=== PATIENT | female | born 1970 | race Caucasian/White ===

== ENCOUNTER → 2020-11-21 14:07 | Outpatient (BNVA) | payer BC, SELFPAY | PROVIDERS: PCP Internal Medicine; Visit Provider Internal Medicine Cardiovascular Disease | DX: E78.5 Hyperlipidemia, unspecified (principal); I10 Essential (primary) hypertension | CPT/HCPCS: 93005 ==

== ENCOUNTER → 2021-12-26 08:56 | Outpatient (BNVA) | payer BC, SELFPAY | PROVIDERS: PCP Internal Medicine; Referring Provider Internal Medicine; Visit Provider Internal Medicine Cardiovascular Disease | DX: I10 Essential (primary) hypertension (principal); E78.5 Hyperlipidemia, unspecified | CPT/HCPCS: 93005 ==

== ENCOUNTER → 2022-12-04 13:02 | Outpatient (BNVA) | payer BC, SELFPAY | PROVIDERS: PCP Internal Medicine; Referring Provider Internal Medicine; Visit Provider Internal Medicine Cardiovascular Disease | DX: I10 Essential (primary) hypertension (principal); E78.5 Hyperlipidemia, unspecified | CPT/HCPCS: 93005 ==

== ENCOUNTER 2023-03-16 22:34 | Inpatient (IN) | payer BC, SELFPAY ==
--- NOTE | ~2023-03-16 | US_ITS ---
EXAMINATION: US ABDOMEN LIMITED CLINICAL INFORMATION: Right upper quadrant pain. COMPARISON: None available. TECHNIQUE: Real-time imaging of the right upper quadrant abdominal viscera. FINDINGS: PANCREAS: The head and the body of the pancreas is homogeneous echotexture. The tail is obscured by overlying gas. LIVER: The liver is normal in size. The liver contour is normal. Parenchymal echogenicity is increased. No focal hepatic lesion. There is no intrahepatic biliary duct dilatation seen. GALLBLADDER: Gallbladder is distended with echogenic sludge and a impacted stone in the gallbladder neck. Gallbladder wall measures 0.5 cm thick. There is mild pericholecystic fluid collection. COMMON BILE DUCT: Normal in caliber measuring 0.5 cm in diameter. RIGHT KIDNEY: Normal. No hydronephrosis. No renal calculi or focal parenchymal lesions. The kidney measures 10.6 cm in maximum dimension. FREE FLUID: None. US/US abdomen limited IMPRESSION: 1. Distended gallbladder with echogenic sludge and impacted stone in the gallbladder neck. Mild wall thickening and pericholecystic fluid collection. Findings are suggestive of acute cholecystitis. 2. Rest of the limited right upper quadrant ultrasound is unremarkable.
[2023-03-16 23:24] VITALS: BP 143/77; PULSE 85; RESP 18; TEMP 36.6; O2SAT 98; BMI 44.8
[2023-03-16 23:44] LABS: Hematocrit 41.8 % (37.0-47.0); Hemoglobin 14.5 g/dl (12.0-16.0); Mean Corpuscular HGB Conc 34.7 g/dl (31.0-35.0); Mean Corpuscular Hemoglobin 30.1 pg (27.0-33.0); Mean Corpuscular Volume 86.9 fL (80.0-98.0); Mean Platelet Volume 10.1 fL (9.4-12.3); Platelet Count 234 X10*3/uL (160-400); Red Blood Count 4.81 X10*6/uL (4.20-5.50); Red Cell Distribution Width 12.4 % (11.0-16.0); White Blood Count 11.9 X10*3/uL (4.8-10.8)
[2023-03-17] VITALS (11 sets, daily range): BP systolic 122–159; BP diastolic 62–80; PULSE 77–106; RESP 16–23; TEMP 36.1–36.9; O2SAT 93–98
[2023-03-17 00:01] LABS: Alanine Aminotransferase 15 U/L (0-31); Albumin Level 4.1 g/dL (3.5-5.0); Alkaline Phosphatase 97 U/L (39-117); Anion Gap 15 (12-20); Aspartate Amino Transferase 16 U/L (5-31); Bilirubin Total 1.2 mg/dL (0.0-1.0); Blood Urea Nitrogen 10 mg/dL (9-16); Calcium 10.2 mg/dL (8.4-10.2); Carbon Dioxide 28 mmol/L (22-29); Chloride 98 mmol/L (96-108); Creatinine Clr Calc Pharmacy 77.1; Estimated Glomerular Filt Rate 56; Glucose Random 120 mg/dL (60-115); Lipase 20 U/L (8-78); Sodium 138 mmol/L (135-145); Total Protein 8.4 g/dL (6.5-8.0)
--- NOTE | 2023-03-17 01:00 | PC.NURSE ---
Patient to ED for c/o abdominal pain in the right upper abdomen radiating to the right back for last 2-3 days. Pt states she is also nauseated and bloated for the last 2-3 days as well. Pt states she has never had similar pain in the past. Pt denies any urinary complaints no fever or chills patient did not eat much for last 24 hours because of pain. Pts history includes a prior hysterectomy but otherwise no other abdominal surgeries.
--- NOTE | 2023-03-17 02:03 | ED_ITS ---
HPI - Abdominal Pain General Chief Complaint: Abdominal Pain Stated Complaint: Rightside back/side pain Time Seen by Provider: 03/17/23 02:02 Source: patient Mode of arrival: ambulatory Limitations: no limitations History of Present Illness HPI narrative: Patient no significant past abdominal complaints noticed pain in the right upper abdomen radiating to the right back for last 2-3 days does not feel hungry feel nauseated and bloated never had similar pain in the past no urinary complaints no fever or chills patient did not eat much for last 24 hours because of pain. She had prior hysterectomy moving her bowels , has severe nausea no vomiting Related Data Home Medications Medication Instructions Recorded Confirmed amlodipine 5 mg tablet 5 mg PO DAILY 11/21/20 12/04/22 atorvastatin 20 mg tablet 20 mg PO DAILY 11/21/20 12/04/22 cholecalciferol (vitamin D3) 25 25 mcg PO DAILY 11/21/20 12/04/22 mcg (1,000 unit) capsule hydrochlorothiazide 12.5 mg capsule 12.5 mg PO DAILY 11/21/20 12/04/22 metoprolol succinate 100 mg 100 mg PO DAILY 11/21/20 12/04/22 tablet,extended release 24 hr valsartan 160 mg tablet 160 mg PO DAILY 11/21/20 12/04/22 levothyroxine 125 mcg capsule 125 mcg PO DAILY 12/26/21 12/04/22 Allergies Allergy/AdvReac Type Severity Reaction Status Date / Time lisinopril Allergy Unknown cough Verified 12/04/22 13:09 Review of Systems Review of Systems Yes all other systems are reviewed and are negative [facility] Past Medical History Surgical History History of adenoidectomy History of eye surgery History of hysterectomy Family History Family History Father Hypertension Hyperlipidemia Carotid disease, bilateral Mother Hypertension Thyroid disease History of heart attack Social History Social History Alcohol intake: never Patient Tobacco Use Status: Never used Tobacco Smoked in Last 30 Days: No Use of substances other than those prescribed or required for medical reasons: No Any prior treatment program specific to substance use: No Advance Directives: No Advance Directives Information Provided: Yes Patient : No Physical Exam ED Vital Signs: Vital Signs - 24 hr 03/16/23 23:24 03/17/23 02:23 Temperature 98 F Pulse Rate 85 78 Respiratory Rate 18 18 Blood Pressure 143/77 H 147/77 H Pulse Oximetry 98 98 Oxygen Delivery Method Room Air BMI result Body Mass Index 44.8 Appearance: Alert. Oriented X3. No acute distress. Eyes: No pallor or icterus ENT: Pharynx normal. Oral Mucosa moist Neck: Normal inspection. Neck supple. CVS: Normal heart rate and rhythm. Pulses normal. Respiratory: No respiratory distress. Equal air entry bilateral, no wheezing/rales/rhonchi Abdomen: Soft , tender right upper quadrant Diaz sign positive Bowel sounds are present, no mass palpable, no CVA tenderness Skin: Skin warm and dry. Normal skin color. Normal skin turgor. Extremities: No lower extremity edema. Neuro: Oriented X 3. No motor deficit. Medical Decision Making Medical Decision Making [facility] Narrative: Patient impacted gallstone in the gallbladder neck with wall thickening and slight fluid collection around the gallbladder suggestive of cholecystitis patient is still very uncomfortable has tenderness in right upper quadrant Diaz sign positive case discussed with Dr. Mcginnis surgeon will admit patient for possible surgery, patient urine showed wbc's with large amount of leuko Estrace nitrite negative bacteria 1+ patient denied any urinary symptoms Consult Healthcare Provider Management of the patient was discussed with: Generator Assembler surgeon Lab Data [facility] Lab Attestation statement: I reviewed the patient's lab results. 03/16/23 23:39 03/16/23 23:39 Labs: Lab Results 03/16/23 03/16/23 03/17/23 Range/Units 23:39 23:39 05:01 WBC 11.9 H (4.8-10.8) X10*3/uL RBC 4.81 (4.20-5.50) X10*6/uL Hgb 14.5 (12.0-16.0) g/dl Hct 41.8 (37.0-47.0) % MCV 86.9 (80.0-98.0) fL MCH 30.1 (27.0-33.0) pg MCHC 34.7 (31.0-35.0) g/dl RDW 12.4 (11.0-16.0) % Plt Count 234 (160-400) X10*3/uL MPV 10.1 (9.4-12.3) fL Absolute Nucleated RBC 0.000 (0.0-0.012) X10*3/uL Nucleated RBC % (auto) 0.0 (0.0-0.2) /100WBC Sodium 138 (135-145) mmol/L Potassium 3.0 L (3.3-5.1) mmol/L Chloride 98 (96-108) mmol/L Carbon Dioxide 28 (22-29) mmol/L Anion Gap 15 (12-20) BUN 10 (9-16) mg/dL Creatinine 1.03 (0.5-1.4) mg/dL Estim Creat Clear Calc 77.1 Estimated GFR 56 Random Glucose 120 H (60-115) mg/dL Lactic Acid 1.0 (0.5-2.0) mmol/L Calcium 10.2 (8.4-10.2) mg/dL Total Bilirubin 1.2 H (0.0-1.0) mg/dL AST 16 (5-31) U/L ALT 15 (0-31) U/L Alkaline Phosphatase 97 (39-117) U/L Total Protein 8.4 H (6.5-8.0) g/dL Albumin 4.1 (3.5-5.0) g/dL Lipase 20 (8-78) U/L Radiology Impression Discussion of test interpretation with radiology: I have reviewed the radiologist's reading. Radiologist Impression: US/US abdomen limited IMPRESSION: 1.? Distended gallbladder with echogenic sludge and? impacted stone in the gallbladder neck. Mild wall thickening and pericholecystic fluid collection. Findings are suggestive of acute cholecystitis. 2.? Rest of the limited right upper quadrant ultrasound is unremarkable. ? Medications Administered Generic Name Dose Route Start Last Admin Trade Name Freq PRN Reason Stop Dose Admin Sodium Chloride 1,000 mls @ 100 mls/hr 03/17/23 05:15 03/17/23 05:52 Ns IVCONT 100 mls/hr .Q10H SHABANA Administration Discontinued Medications Generic Name Dose Route Start Last Admin Trade Name Freq PRN Reason Stop Dose Admin Sodium Chloride 1,000 mls @ 999 mls/hr 03/17/23 02:53 03/17/23 04:44 Ns IV 03/17/23 03:53 Infused .Q1H1M ONE Infusion Potassium Chloride 10 meq in 100 mls @ 100 mls/hr 03/17/23 02:53 03/17/23 04:42 Potassium Chloride/H20 IV 03/17/23 03:52 Infused ONCE ONE Infusion Piperacillin Sod/Tazobactam 50 mls @ 100 mls/hr 03/17/23 04:46 03/17/23 05:07 Sod 3.375 gm/ Sodium Chloride IV 03/17/23 05:15 100 mls/hr ONCE ONE Administration Morphine Sulfate 4 mg 03/17/23 02:53 03/17/23 03:42 Morphine Sulfate 4 Mg/Ml Cartridge IVPUSH 03/17/23 02:54 4 mg ONCE ONE Administration Protocol Morphine Sulfate 4 mg 03/17/23 04:48 03/17/23 05:08 Morphine Sulfate 4 Mg/Ml Cartridge IVPUSH 03/17/23 04:49 4 mg ONCE ONE Administration Protocol Ondansetron HCl 4 mg 03/17/23 02:53 03/17/23 03:42 Ondansetron Hcl 4 Mg/2 Ml Vial IVPUSH 03/17/23 02:54 4 mg ONCE ONE Administration Discharge Plan Discharge Clinical Impression: Acute cholecystitis, Acute hypokalemia Patient Disposition: Admitted As Inpatient
[2023-03-17] MEDS: ondansetron HCL 4 MG/2 ML VIAL IVPUSH (03:42)
[2023-03-17] MEDS: Morphine Sulfate 4 MG/ML CARTRIDGE IVPUSH ×2 (03:42→05:08)
[2023-03-17] MEDS: Potassium Chloride/H20 10 MEQ/100 ML PIGGYBACK 100 MEQ IV (03:42)
[2023-03-17] MEDS: 0.9 % Sodium Chloride 1,000 ML 999 ML IV (03:43)
[2023-03-17] MEDS: Piperacillin Sodium/Tazobactam 3.375 GM in 0.9 % Sodium Chloride 50 ML IV ×2 (05:07→13:10)
[2023-03-17 05:25] LABS: Appearance Urine Clear; Color Urine Yellow; Glucose Urine UA Negative (Negative); Leukocyte Esterase Urine Large (3+) (Negative); Nitrite Urine Negative (Negative); PH 6.5 (5.0-9.0); Specific Gravity - Urine <= 1.005 (1.005-1.025); UMIC TRIGGER UACC YES; Urine Blood Negative (Negative); Urine Ketones Negative (Negative); Urine Protein Negative (Neg-Trace)
[2023-03-17 05:30] LABS: Bacteria Urine 1+ (None Seen); Hyaline Casts Urine 0-2 /LPF (0-2); UACC Culture Trigger YES; WBC Urine >50 /HPF (0-5)
[2023-03-17] MEDS: 0.9 % Sodium Chloride 1,000 ML 100 ML IVCONT (05:52)
--- NOTE | 2023-03-17 07:19 | PC.NURSE ---
pt is aox3 speaking in full clear sentences. aware of plan of care for surgery. states she has not eaten since 4pm yesterday but was drinking water about an hour ago. will make md aware. denied having any questions.
--- NOTE | 2023-03-17 07:52 | P.HPGS_ITS ---
History of Present Illness History of Present Illness Date of Service: 03/17/23 Chief complaint: Abdo pain Narrative: Zena Ashraf is a 52 year old female with a history of biliary colic who presents here with an exacerbation consisting of right upper quadrant pain radiating around to her back. She has had several bouts of this in the past. On this episode, because of progression of symptoms he presents to the emergency department for further evaluation. She denies any nausea or vomiting. She has regular bowel habits. She has never been jaundiced before. Patient has never had colonoscopy before. Sonographic findings consistent with acute cholecystitis. Chart was reviewed patient evaluated. Bilirubin level 1.2. White blood count 11.6 per PMFSH Family History Family History Father Hypertension Hyperlipidemia Carotid disease, bilateral Mother Hypertension Thyroid disease History of heart attack Surgical History Surgical History History of adenoidectomy History of eye surgery History of hysterectomy Social History Social History Alcohol intake: never Patient Tobacco Use Status: Never used Tobacco Smoked in Last 30 Days: No Use of substances other than those prescribed or required for medical reasons: No Any prior treatment program specific to substance use: No Advance Directives: No Advance Directives Information Provided: Yes Patient : No Meds Allergies Allergy/AdvReac Type Severity Reaction Status Date / Time lisinopril Allergy Unknown cough Verified 12/04/22 13:09 Active Medications: Current Medications Sodium Chloride (Ns) 1,000 mls @ 100 mls/hr IVCONT .Q10H [facility] Last Admin: 03/17/23 05:52 Dose: 100 mls/hr Piperacillin Sod/Tazobactam (Sod 3.375 gm/ Sodium Chloride) 50 mls @ 100 mls/hr IV Q6H SHABANA Morphine Sulfate (Morphine Sulfate 4 Mg/Ml Cartridge) 4 mg IVPUSH Q4H PRN; Protocol PRN Reason: Pain, Severe (Pain Scale 7-10) Sodium Chloride (0.9 % Sodium Chloride Flush 3 Ml Syringe) 3 ml IVFLUSH QSHIFT [facility] Last Admin: 03/17/23 07:03 Dose: Not Given Home Medications Medication Instructions Recorded Confirmed Last Taken Type amlodipine 5 mg tablet 5 mg PO DAILY 11/21/20 12/04/22 Unknown History atorvastatin 20 mg tablet 20 mg PO DAILY 11/21/20 12/04/22 Unknown History cholecalciferol (vitamin D3) 25 25 mcg PO DAILY 11/21/20 12/04/22 Unknown History mcg (1,000 unit) capsule hydrochlorothiazide 12.5 mg capsule 12.5 mg PO DAILY 11/21/20 12/04/22 Unknown History metoprolol succinate 100 mg 100 mg PO DAILY 11/21/20 12/04/22 Unknown History tablet,extended release 24 hr valsartan 160 mg tablet 160 mg PO DAILY 11/21/20 12/04/22 Unknown History levothyroxine 125 mcg capsule 125 mcg PO DAILY 12/26/21 12/04/22 Unknown History semaglutide (weight loss) 0.25 0.25 mg subcut QWEEK 03/17/23 Unknown History mg/0.5 mL subcutaneous pen injector (Alise) Physical Exam Vital Signs: Vital Signs: Last Vital Signs Temp 97.3 F 03/17/23 06:29 Pulse 80 03/17/23 06:29 Resp 18 03/17/23 06:29 BP 122/67 03/17/23 06:29 Pulse Ox 94 03/17/23 06:29 O2 Del Method Room Air 03/17/23 06:29 BMI result Body Mass Index 44.8 Eyes: Other: anicteric Chest: Other: chest sounds bilaterally, HS 1 in 2 GI: Other: very corpulent abdomen. Moderate right upper quadrant tenderness. No evidence of any guarding , rebound or rigidity. Results Results Labs: Short CBC 03/16/23 Range/Units 23:39 WBC 11.9 H (4.8-10.8) X10*3/uL Hgb 14.5 (12.0-16.0) g/dl Hct 41.8 (37.0-47.0) % Plt Count 234 (160-400) X10*3/uL BMP 03/16/23 23:39 Sodium 138 Potassium 3.0 L Chloride 98 Carbon Dioxide 28 BUN 10 Creatinine 1.03 Calcium 10.2 Liver Function 03/16/23 Range/Units 23:39 Total Bilirubin 1.2 H (0.0-1.0) mg/dL AST 16 (5-31) U/L ALT 15 (0-31) U/L Alkaline Phosphatase 97 (39-117) U/L Albumin 4.1 (3.5-5.0) g/dL Urine 03/17/23 Range/Units 05:19 Urine Color Yellow Urine Appearance Clear Urine pH 6.5 (5.0-9.0) Ur Specific [place] <= 1.005 (1.005-1.025) Urine Protein Negative (Neg-Trace) mg/dL Urine Glucose (UA) Negative (Negative) mg/dL Assessment and Plan (1) Acute cholecystitis: Status: Acute Plan risks, benefits, alternatives of laparoscopic possible open cholecystectomy reviewed with the patient and included but not limited to bleeding, infection, recurrence of symptoms, numbness, pain, scarring, bile duct injury or leak and the patient wishes to proceed. All questions were answered. Patient will be placed on the add on schedule for today. Time Spent With Patient Time: Total time managing care of this patient today ____ minutes. Quality Stroke Does the patient have a stroke diagnosis?: No VTE Prior VTE?: No VTE Risk Level:: Surgical - low VTE Device Contraindication: N/A - Device Ordered VTE Drug Contraindication: Treatment Not Indicated Procedures Date of Service Date of Service: 03/17/23
--- NOTE | 2023-03-17 08:52 | PC.NURSE ---
report given to [facility] plan for apple picking supervisor around 12noon
--- NOTE | 2023-03-17 09:20 | MHC.CM.PN ---
Met with patient and Yinka in regards to discharge planning. Patient lives with her , ambulates independently and had no services prior to coming to the hospital. 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 No services anticipated to be needed because patient is not homebound. PCP verified as Dr Mercado. Patient denies having a HCP. Information provided. Patient not interested in completing one at this time. Patient received 5 Covid vaccines. Yinka will transport patient home when medically stable. Continue to monitor for d/c needs.
--- NOTE | 2023-03-17 12:17 | PC.NURSE ---
pt completely changed over. awaiting SSS mixing picker tender.
--- NOTE | 2023-03-17 12:37 | PC.NURSE ---
SSS here to bring pt to OR
--- NOTE | 2023-03-17 12:41 | HO.ANESPROP2 ---
HPI - Anesthesia Eval Consult details Narrative: for lap cholecystectomy PMFSH Active Problems Active Problems: All Active Problems (Updated 03/17/23 @ 06:07 by Amrit Pineda MD) Acute cholecystitis (Acute) Acute hypokalemia (Acute) UTI (urinary tract infection) (Acute) Hyperlipidemia (Acute) Hypertension (Acute) Family History Family History Father Hypertension Hyperlipidemia Carotid disease, bilateral Mother Hypertension Thyroid disease History of heart attack Family history of problems with anesthesia: No Surgical History Surgical History History of adenoidectomy History of eye surgery History of hysterectomy History of Problems with Anesthesia: No Social History Social History Alcohol intake: never Patient Tobacco Use Status: Never used Tobacco Smoked in Last 30 Days: No Use of substances other than those prescribed or required for medical reasons: No Any prior treatment program specific to substance use: No Advance Directives: No Advance Directives Information Provided: Yes Patient : No service: No Meds Allergies Allergy/AdvReac Type Severity Reaction Status Date / Time lisinopril Allergy Unknown cough Verified 12/04/22 13:09 Active Medications: Current Medications Sodium Chloride (Ns) 1,000 mls @ 100 mls/hr IVCONT .Q10H [facility] Last Admin: 03/17/23 05:52 Dose: 100 mls/hr Piperacillin Sod/Tazobactam (Sod 3.375 gm/ Sodium Chloride) 50 mls @ 100 mls/hr IV Q6H SHABANA Morphine Sulfate (Morphine Sulfate 4 Mg/Ml Cartridge) 4 mg IVPUSH Q4H PRN; Protocol PRN Reason: Pain, Severe (Pain Scale 7-10) Sodium Chloride (0.9 % Sodium Chloride Flush 3 Ml Syringe) 3 ml IVFLUSH QSHIFT [facility] Last Admin: 03/17/23 07:03 Dose: Not Given Home Medications Medication Instructions Recorded Confirmed Last Taken Type amlodipine 5 mg tablet 5 mg PO DAILY 11/21/20 03/17/23 03/17/23 History atorvastatin 20 mg tablet 20 mg PO BEDTIME 11/21/20 03/17/23 03/17/23 History cholecalciferol (vitamin D3) 25 50 mcg PO DAILY 11/21/20 03/17/23 03/17/23 History mcg (1,000 unit) capsule hydrochlorothiazide 12.5 mg capsule 12.5 mg PO DAILY 11/21/20 03/17/23 03/17/23 History metoprolol succinate 100 mg 100 mg PO DAILY 11/21/20 03/17/23 03/17/23 History tablet,extended release 24 hr valsartan 160 mg tablet 160 mg PO DAILY 11/21/20 03/17/23 03/17/23 History levothyroxine 125 mcg capsule 125 mcg PO DAILY@0600 12/26/21 03/17/23 03/17/23 History semaglutide (weight loss) 0.25 0.25 mg subcut QWEEK 03/17/23 03/17/23 2 Weeks Ago History mg/0.5 mL subcutaneous pen ~03/03/23 injector (Alise) Exam Exam Date and Time: March 17, 2023 1241 Height,Weight and Vital Signs: Height 5 ft 3 in Weight 114.759 kg Last Vital Signs Temp 97.3 F 03/17/23 06:29 Pulse 77 03/17/23 08:21 Resp 19 03/17/23 08:21 BP 140/66 H 03/17/23 08:21 Pulse Ox 93 03/17/23 08:21 O2 Del Method Room Air 03/17/23 08:21 Pertinent Lab Results Pertinent Lab Results: Laboratory Tests 03/16/23 03/16/23 03/17/23 23:39 23:39 05:01 WBC 11.9 H RBC 4.81 Hgb 14.5 Hct 41.8 MCV 86.9 MCH 30.1 MCHC 34.7 RDW 12.4 Plt Count 234 MPV 10.1 Absolute Nucleated RBC 0.000 Nucleated RBC % (auto) 0.0 Sodium 138 Potassium 3.0 L Chloride 98 Carbon Dioxide 28 Anion Gap 15 BUN 10 Creatinine 1.03 Estim Creat Clear Calc 77.1 Estimated GFR 56 Random Glucose 120 H Lactic Acid 1.0 Calcium 10.2 Total Bilirubin 1.2 H AST 16 ALT 15 Alkaline Phosphatase 97 Total Protein 8.4 H Albumin 4.1 Lipase 20 Urine Color Urine Appearance Urine pH Ur Specific [place] Urine Protein Urine Glucose (UA) Urine Ketones Urine Blood Urine Nitrite Ur Leukocyte Esterase Urine RBC Urine WBC Ur Squamous Epith Cells Urine Bacteria Hyaline Casts 03/17/23 05:19 WBC RBC Hgb Hct MCV MCH MCHC RDW Plt Count MPV Absolute Nucleated RBC Nucleated RBC % (auto) Sodium Potassium Chloride Carbon Dioxide Anion Gap BUN Creatinine Estim Creat Clear Calc Estimated GFR Random Glucose Lactic Acid Calcium Total Bilirubin AST ALT Alkaline Phosphatase Total Protein Albumin Lipase Urine Color Yellow Urine Appearance Clear Urine pH 6.5 Ur Specific [place] <= 1.005 Urine Protein Negative Urine Glucose (UA) Negative Urine Ketones Negative Urine Blood Negative Urine Nitrite Negative Ur Leukocyte Esterase Large (3+) H Urine RBC 3-5 H Urine WBC >50 H Ur Squamous Epith Cells 6-10 Urine Bacteria 1+ Hyaline Casts 0-2 Airway Mallampati Class: II TM Dist: <=3cm Neck ROM: Full Partial: Lower Heart: ok Lungs: ok Other: potassium 3.0. Had 10 mEq in ED. Needs another 30 mEq. Assessment and Plan Assessment Anesthesia Assessment: Anesthesia Plan Discussed and Chart Reviewed Final Anesthetic Review Family History of Problems with Anesthesia: No History of Problems with Anesthesia: No NPO: Yes ASA Class: III Final Preanesthetic Review: No Changes in Pt Med Stat, Meds/Allgs Chart Reviewed, Consent Obtained/Reviewed and Anes Risks/Benef Reviewed Patient Risk: Intermediate Procedure Risk: Intermediate Anesthetic Plan Anesthetic Plan: GA and Agree w/ Assess. and Plan Disposition: Standard PACU
--- NOTE | 2023-03-17 14:26 | P.OP_ITS ---
Operative Note Operative Note Date of Service: 03/17/23 Narrative: Preoperative diagnosis: [] Acute cholecystitis, incarcerated umbilical hernia Postop diagnosis: [] Acute phlegmonous cholecystitis, incarcerated umbilical hernia Procedure [] laparoscopic cholecystectomy, primary closure umbilical hernia Surgeon: [] [employer] Plant Technical Specialist: [] josé Brown Type of Anesthesia: [] General Indication for surgery: [] Edematous, inflamed, phlegmonous intrahepatic gallbladder. Large gallstone impacted in the cystic duct/Sharif's pouch junction. Very corpulent abdomen. Incidental finding of an incarcerated umbilical hernia with omental contents ; defect measuring approximately 1 cm. Findings: [] Patient brought to operating room, placed on the operative table in supine position, and after adequate level of general anesthesia was induced, the patient's abdomen was prepped and draped in usual sterile fashion. Using a supraumbilical curvilinear incision, this carried down through skin , subcutaneous tissue, where hernia sac was identified and dissected off the posterior aspect of the umbilicus and traced down to the fascia. Sac was opened, where incarcerated omental contents and sac were amputated using Bovie. [place] technique was then used to in insufflate the abdominal cavity to 15 mm of CO2. Upper midline and right subcostal ports were placed under direct laparoscopic view, the patient placed in reverse Trendelenburg position, and tilted to the left. Findings were as noted above. A large phlegmonous turgid gallbladder had to be decompressed with an aspirating device so it could be grasped by laparoscopic graspers. Gallbladder had omental and gastric adhesions to it, which were swept off and the gallbladder was retracted superiorly and laterally. Edematous phlegmonous hilum was approached with the cystic duct and cystic artery were each identified, circumferentially dissected out, traced directly into the gallbladder and critical view obtained. Each was clipped proximally x2, distally x1, then transected. Gallbladder ,which was intrahe patic was cauterized from the gallbladder fossa using Bovie. Specimen was placed in an Endo-Catch bag, and retrieved through the umbilical port. Abdominal cavity was very copiously irrigated, and secured hemostasis. All ports were removed under direct laparoscopic view. Wounds were closed in the following manner; umbilical wound which was the site of the umbilical hernia was closed primarily using interrupted 0 Vicryl sutures. Skin wounds were closed using subcuticular 4-0 Vicryl sutures followed by Steri-Strips and sterile dressings. Wounds were infiltrated 0.5% Marcaine at completion. Sponge, needle, and instrument counts were reported to be correct. Patient tolerated the procedure well and emerged anesthesia stable condition. EBL minimal
--- NOTE | 2023-03-18 09:32 | P.DS_ITS ---
DS: Providers Provider Date of Service: 03/17/23 Date of admission: 03/17/23 05:03 Date of discharge: 03/17/23 Primary care physician: Roc Mercado MD Attending physician on admission: Umm Mcginnis Attending physician on discharge: Lawson Anders DS: Diagnosis Discharge Diagnosis (1) Acute cholecystitis: Status: Acute DS: Summary Hospital Course Hospital Course: HPI AT ADMISSION: Zena Ashraf is a 52 year old female with a history of biliary colic, morbid obesity who presents here with an exacerbation consisting of right upper quadrant pain radiating around to her back. She has had several bouts of this in the past. On this episode, because of progression of symptoms he presents to the emergency department for further evaluation. She denies any nausea or vomiting. She has regular bowel habits. She has never been jaundiced before. Patient has never had colonoscopy before. Sonographic findings consistent with acute cholecystitis. Chart was reviewed patient evaluated. Bi lirubin level 1.2. White blood count 11.6. HOSPITAL COURSE: The patient was admitted to the surgical service for further treatment of the acute cholecystitis. It was recommended to proceed with with laparoscopic cholecystectomy, possible open. She agreed and was added onto the OR schedule for the day. She was kept NPO, on IVF and IV zosyn. She was hypokalemic on admission labs and this was supplemented preoperatively. On 03/17/23, a laparoscopic cholecystectomy was performed by Dr. Anders without complication. She tolerated the procedure well. She felt well in PACU and was tolerating solid diet with good pain control. Her abdomen was benign. She felt ready for discharge. She was discharged to home on 03/17/23 in stable condition. She is to follow up in the office in 1 week. She did have a UTI on urinalysis and was discharged on 5 day course of Macrobid. Status at Discharge Functional status at discharge: independent ambulation Overall status at discharge: patient is progressing back to baseline Time Spent with Patient Time attestation: Total time managing care of this patient today ____ minutes. Discharge coordination time: Less than 30 minutes Quality: Safe Use of Opioids Does Pt have an Active Cancer Diagnosis on the Problem List?: No Quality: Stroke Does the patient have a stroke diagnosis?: No Physical Exam Vital Signs: Vital Signs: Last Vital Signs Temp 97.1 F 03/17/23 15:38 Pulse 81 03/17/23 15:38 Resp 19 03/17/23 15:38 BP 126/66 03/17/23 15:38 Pulse Ox 93 03/17/23 15:38 O2 Del Method Room Air 03/17/23 15:38 O2 Flow Rate 2 03/17/23 15:08 BMI result Body Mass Index 44.8 Const: General: comfortable, no acute distress and alert Orientation/consciousness: patient oriented x3 Resp: Effort & Inspection: normal respiratory effort GI: Inspection: No distended and Yes incision (dressings clean, intact) Palpation (GI): Soft to palpation, Tenderness to palpation present (GI) (incisional), no guarding and not rigid Skin: General skin exam: no rashes or lesions noted Neuro: General: patient oriented x3 and moves all extremities DS: Data Data Completed and Pending Pending studies at discharge: Pending at discharge 03/17/23 14:23 Surgical [PTH] Routine Labs on day of discharge: Preliminary micro results at discharge 03/17/23 05:02 Blood Culture - Preliminary Blood - Venous No growth after 24 hours. 03/17/23 05:02 Blood Culture - Preliminary Blood - Venous No growth after 24 hours. Discharge Plan Discharge Anticipated Discharge Date/Time: 03/18/23 08:24 Patient Disposition: Home, Self-Care Discharge Diagnosis: acute cholecystitis Referrals: Lawson Anders MD [Physician] - 1 Week Physician,Unknown J [Physician] - 1 Week Discharge Medications: New oxycodone-acetaminophen [Percocet] 5-325 mg tablet 1 tab PO Q4H PRN (Reason: pain (scale score 7-10)) Qty: 20 0RF Rx Instructions: Partial Fill upon patient request. nitrofurantoin monohyd/m-cryst [Macrobid] 100 mg capsule 100 mg PO BID Qty: 10 0RF Rx Instructions: must administer with a meal/food Continued Wegovy 0.25 mg/0.5 mL pen injector 0.25 mg subcut QWEEK hydrochlorothiazide 12.5 mg capsule 12.5 mg PO DAILY valsartan 160 mg tablet 160 mg PO DAILY amlodipine 5 mg tablet 5 mg PO DAILY metoprolol succinate 100 mg tablet extended release 24 hr 100 mg PO DAILY atorvastatin 20 mg tablet 20 mg PO BEDTIME cholecalciferol (vitamin D3) 25 mcg (1,000 unit) capsule 50 mcg PO DAILY levothyroxine 125 mcg capsule 125 mcg PO DAILY@0600 Discharge Orders: Discharge Order (Routine); Ordered 03/17/23 Ordered By: Lawson Anders Diet: Low fat, low cholesterol Activity on Discharge: No heavy lifting Stand Alone Forms: Patient Portal Discharge page Activity Restrictions/Additional Instructions: Apply an ice pack for short intervals (20 minutes on, followed by at least 20 minutes off) for the first 2 days. Do not use creams, lotions, or topical antibiotics. These can cause infection or allergic reaction. Ok to shower 48 hours after your surgery. Remove dressings in 2 days and replace as needed. You have steri strips (small white cloth strips) covering your incision- these will fall off ~1 week. Follow up in office with Dr. Anders in 1 week. ([phone]) No heavy lifting (>10lbs) or strenuous activity! Call Your Doctor If: -Your temperature exceeds 101.5? F -You experience excessive pain or swelling -You have an unexpected reaction to medication -You have excessive bleeding -You experience continued vomiting/nausea -Your incision begins to separate -Your incision shows signs of infection such as increased redness, swelling, excessive pain, drainage (light blood or clear fluid is normal) or heat Care Plan Goals: Return to baseline health and resume normal activities following recovery period. Health Concerns: hypertension acute cholecystitis, umbilical hernia UTI Plan of Treatment: s/p lap esther, repair of umbilical hernia f/u in office in 1 week PO abx for UTI Assessment: Doing well post op. Discharge Date/Time: 03/17/23 16:09
== END 2023-03-17 16:09 | disposition home or self-care (01) | DRG 263 ==
LOC: HO.ED 03-17 04:55 → HO.EDOVER 03-17 05:10
PROVIDERS: Surgery; Admitting Provider Surgery; Emergency Provider Internal Medicine; PCP Internal Medicine; Visit Provider Surgery
PROC: 0FT44ZZ Resection of Gallbladder, Percutaneous Endoscopic Approach (ICD-10-PCS; CPT 47562; principal; 2023-03-17 13:00)
DX: K80.01 Calculus of gallbladder with acute cholecystitis with obstruction (principal); K42.0 Umbilical hernia with obstruction, without gangrene; N39.0 Urinary tract infection, site not specified; E66.01 Morbid (severe) obesity due to excess calories; Z68.41 Body mass index [BMI] 40.0-44.9, adult; E87.6 Hypokalemia; Z79.890 Hormone replacement therapy; Z79.899 Other long term (current) drug therapy
CPT/HCPCS: 36415; 76705; 80053; 81001; 83605; 83690; 85027; 87040; 87086; 88304; 99284; 99285; J1885; J2270; J2405; J2543; J2795; J3010

== ENCOUNTER → 2023-03-25 14:20 | Outpatient (BNVA) | payer BC, SELFPAY | PROVIDERS: PCP Internal Medicine; Visit Provider Surgery ==

== ENCOUNTER 2023-12-07 15:08 | Outpatient (AMB) | payer OTHER, SELFPAY ==
[2023-12-07 15:40] VITALS: BP 130/60; PULSE 84; BMI 49.7
--- NOTE | 2023-12-07 15:40 | MHC.OFFVIS ---
Intake Vital Signs 12/07/23 15:40 Height 5 ft 3 in Weight 280 lb 13.903 oz BMI 49.7 BP 130/60 Blood Pressure Location Lt radial Position Sitting Pulse 84 Intake Visit Reasons: 1 yr f/up Intake Note: pt its here for a 1 yr f/up pt its feeling fine. 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 She has background history of hypertension and hyperlipidemia. Blood pressure control is good. She has been taking medications regularly. She is denying any chest pain or shortness of breath. 12/07/23: She returns for follow-up. She has been doing well. No chest discomfort shortness of breath. Blood pressure is well controlled on current regimen. She is taking amlodipine 5 mg daily, hydrochlorothiazide 12.5 mg daily and metoprolol succinate 100 mg daily. She is also on valsartan 160 mg daily. She was advised to get a lipid panel on last visit. She said she is getting it in December. I have advised her to do a fasting lipid panel. She will do that [facility] and will have reports sent to our office. [facility] Surgical History History of laparoscopic cholecystectomy (03/17/23) History of eye surgery History of adenoidectomy History of hysterectomy Family History Father Hypertension Hyperlipidemia Carotid disease, bilateral Mother Hypertension Thyroid disease History of heart attack Social History Alcohol intake: never Patient Tobacco Use Status: Never used Tobacco service: No Review of Systems Const Denies chills, Denies fatigue, Denies fever(s), Denies frequent falls, Denies weakness, Denies weight gain and Denies weight loss ENT Denies dizziness Card Denies chest pain, Denies leg edema, Denies lightheadedness, Denies palpitations, Denies dyspnea and Denies dyspnea on exertion Resp Denies cough, Denies dyspnea and Denies dyspnea on exertion GI Denies hematochezia Musc Denies abnormal gait, Denies muscle weakness, Denies numbness, Denies radiating pain into limb and Denies tingling Neuro Denies abnormal gait, Denies dizziness, Denies frequent falls, Denies numbness, Denies tingling and Denies weakness Endo Denies fatigue and Denies palpitations Physical Exam Vital Signs: Last Vital Signs Pulse 84 12/07/23 15:40 BP 130/60 12/07/23 15:40 BMI result Body Mass Index 49.7 GENERAL APPEARANCE: in no acute distress, pleasant. NECK: no carotid bruit, no jugular venous distention. SKIN: no suspicious lesions, warm and dry. HEART: no murmurs, regular rate and rhythm. LUNGS: clear to auscultation bilaterally. ABDOMEN: soft, nontender. EXTREMITIES: no edema. PERIPHERAL PULSES: equal. NEUROLOGIC: No gross deficits, AAO X 3 Office Procedures EKG Details: Sinus rhythm 84 beats per minute, normal ECG, QTC 453 milliseconds. [id number], Complete Assessment & Plan Assessment & Plan (1) Hypertension: Code(s): I10 - Essential (primary) hypertension Qualifiers: Hypertension type: essential hypertension Qualified Code(s): I10 - Essential (primary) hypertension (2) Hyperlipidemia: Code(s): E78.5 - Hyperlipidemia, unspecified Qualifiers: Hyperlipidemia type: unspecified Qualified Code(s): E78.5 - Hyperlipidemia, unspecified Plan Pleasant 52-year-old female who is here for follow-up. No chest discomfort shortness of breath. Clinically stable. Blood pressure is well controlled on multiple medications this point. She will have fasting lipid panel and will have the results faxed to our office from [facility]. Thank you for allowing me to participate in the care of your patient. Please feel free to contact me if you have any questions. Coding Level of Care Code Est Pt Level 3 (50545) Diagnoses Essential hypertension I10 Hypertension type: essential hypertension Hyperlipidemia, unspecified hyperlipidemia type E78.5 Hyperlipidemia type: unspecified CPT Codes EKG - CPT: 61094-Tmpninhujedyfxoxw, Complete ([id number])
== END 2023-12-07 16:01 | disposition home or self-care (01) ==
PROVIDERS: PCP Internal Medicine; Visit Provider Internal Medicine Cardiovascular Disease
DX: I10 Essential (primary) hypertension (principal); E78.5 Hyperlipidemia, unspecified
CPT/HCPCS: 93010; 99213

== ENCOUNTER → 2023-12-07 15:08 | Outpatient (BNVA) | payer OTHER, SELFPAY | PROVIDERS: Visit Provider Internal Medicine Cardiovascular Disease | DX: I10 Essential (primary) hypertension (principal); E78.5 Hyperlipidemia, unspecified | CPT/HCPCS: 93005 ==

== ENCOUNTER 2025-02-06 08:52 | Day surgery (SDC) | payer BC, SELFPAY ==
--- OUTSIDE RECORDS SUMMARY | 2025-01-10 10:15 | XMS_ITS ---
Author Organization [facility] Address [address] [place] [address] [place] [address] Care Team Providers Care Healthcare Advisory Services Manager Name Role Phone Roc Mercado MD Primary Care Provider Jorden Wing [phone] REASON FOR VISIT FYI Encounters Encounter Location Date Provider Diagnosis [facility] [address] [place] [phone] 06/27/2024 Jorden Alston Plan Of Treatment Next Appt Details Provider Name:Jorden Alston , 02/06/2025 10:30:00 AM, [address] [place] [address] , [place], [place], [phone], Progress Notes * SHANI HAWKOB:1970 ([age] yo F)Acc No.[id number]:06/27/2024 Patient:?KENNETH HAWK :1970???Age:53 Y???Sex:Female Address:[address] [place] [address], [address] * true * Date:? Generated for Printi ng/Fadelmyg/eTransmitting on:?01/10/2025 10:14 AM EDT
--- OUTSIDE RECORDS SUMMARY | 2025-01-10 10:15 | XMS_ITS ---
Author Organization [facility] Address [address] [place] [address] Care Team Providers Care Canning Machine Operator Name Role Phone Roc Mercado MD Primary Care Provider Unavaila Jorden Issa Unavailable [phone] Allergies Allergen (clinical drug ingredient) Drug/Non Drug [...] Status Risk Notes Problem Colon cancer screening (651356327) Colon cancer screening (Z12.11) Active confirmed Problem Pre-procedure evaluation check (991821011) Encounter for other preprocedural examination (Z01.818) Active confirmed Vital Signs Blood pressure systolic 00 mm Hg 10/27/19 25 Blood pressure diastolic 00 mm Hg 025 Height 5 ft 3 in in 10/27/2024 Weight 268 lbs 10/27/2024 BMI 47.47 kg/m2 10/27/2024 Encounters Encounter Location Date Provider Diagnosis [facility] [address] [place] [address] 10/27/2024 Jorden Alston Colon cancer screeni ng [...] Notes Colon cancer screening Do not take [place] chlorothiazide the day before nor on the day of the colonoscopy Future Test Test Name Order Date COLONOSCOPY 10/27/2024 Next Appt Details Follow Up: prn, Reason: Provider Name:Jorden De Leon Alecia , 02/06/2025 10:30:00 AM, [address] [facility] , [place], [id number], Progress Notes * KENNETH HAWK ADOB:1970 (53 yo F)Acc No.[id number]:10/27/2024 Progress Notes Patient:KENNETH REED Provider:?Jorden Alston MD :1970???Age:53 Y???Sex:Female D ate:10/27/2024 Address:[address] [place] [address] [place] [id number] Pcp:Roc Mercado MD Subjective: * Chief Complaints: * ???Patient presents today fo r a discuss colonoscopy * HPI: ???incontinence:? I saw Kenneth in the office today for evaluation of colorectal cancer screening. ?As you know, Kenneth is a 53-year-old female who presently feels well. She enjoys a good appetite, without any significant heartburn or dysphagia. Her bowel movements have been regular and without any signs of bleeding. She denies any abdominal pain, jaundice, nor unintentional weight loss. She denies any known family history of colon cancer. She has never had a colonoscopy. * ROS:?General/Constitutional:?Change in appetite?denies.?Chills?denies.?Fatigue?denies.?Ophthalmologic:?Comments?all negative.?ENT:?Comments?all negative.?Respiratory:?hemoptysis?denies.?Cough?denies.?Cardiovascular:?Chest pain?denies.?Orthopnea?denies.?Gastrointestinal:?Comments?See HPI for details.?Genitourinary:?Hematuria?denies.?Dysuria?denies.?Musculoskeletal:?Painful joints?denies.?Weakness?denies.?Skin:?Itching?denies.?Rash?denies.?Neurologic:?Headache?denies.?Seizures?denies.?Psychiatric:?Comments?all negative.? * Medical History:? * Surgical History:?Ear tubes Hysterectomy Cholecystectomy * Hospitalization/Major Diagno stic Procedure:?No Hospitalization History. * Family History:?Father: lalo hull 80 yrs.?Mother: alive.? No known hx of colon cancer. * Social History:?Tobacco Use:?Tobacco Use/Smoking?Patient is a?nonsmoker.?Drugs/Alcohol:?Alcohol Screen?Did you have a drink containing alcohol in the past year??No,?Points?0,?Interpretation?Negative.?Miscellaneous:?Marital status: . 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 ???Nonsmoker; no sig alcohol. * Medications:?TakingVitamin D 50 MCG (1999) Capsule 1 capsule [...] reviewed and reconciled with the patient * Allergies:?Lisinopril: cough yes[Allergies Verified] Objective: * Vitals:?Wt: 268 lbs, Ht: 5 f t 3 in, BMI:47.47 Index, BP: 00/00 mm Hg. * Examination: ???General Examination: ?GENERAL APPEARANCE:?pleasant, well nourished, well developed, in no acute distress.?EYES:?sclera non-icteric.?ORAL CAVITY:?mucosa moist.?NECK/THYROID:?no cervical lymphadenopathy, neck supple.?SKIN:?nonjaundiced, no spider angiomata.?HEART:?S1, S2 normal.?LUNGS:?clear to auscultation bilaterally.?ABDOMEN:?normal bowel sounds, no guarding or rigidity, no guarding or rigidity, no masses palpable, soft, nontender, nondistended.?EXTREMITIES:?no edema.?NEUROLOGIC:?alert and oriented.? Assessment: * Assessment: 1.?Encounter for other prepr ocedural examination - Z01.818 (Primary)?2.?Colon cancer screening - Z12.11? Overall, Kenneth appears well. Given her age [...] the day of the colonoscopy?? * Procedure Codes:?3017F COLOR ECTAL CA SCREEN DOC [id number] TOBACCO [id number]-[id number] BP SCR NOT PRFRM REC REASON NOS * Preventive Medicine:? ??Counseling:?Care goal follow-up plan:?Above Normal BMI Follow-up?Giving encouragement to exercise,?BMI management provided?Yes.? * Follow Up:?prn * * Sign off status: Completed true * Provider:?Jorden Alston MD Date:? 025 Generated for Robert manning/Franko/Tiarra on:?01/10/2025 10:15 AM EDT History and Physical Notes * HPI [...]
--- OUTSIDE RECORDS SUMMARY | 2025-01-10 10:15 | XMS_ITS ---
Author Organization [facility] Address [address] [place] [address] Care Team Providers Care Branch Lending Manager Name Role Phone Rogelio ERICKSON, Roc Primary Care Provider Jorden Wing [phone] REASON FOR VISIT colon screening Encounters Encounter Location Date Provider Diagnosis [facility] [address] [place] [phone] 07/06/2024 Jorden Alston Plan Of Treatment Next Appt Details Provider Name:Jorden Alston , 02/06/2025 10:30:00 AM, [address] [place] [address] , [place], [place], [phone], Progress Notes * KENNETH HAWK ADOB:1970 (54 yo F)Acc No.[id number]:07/06/2024 Progress Notes Patient:?HAWKFABRICIOIE Ariana Provider:?Jorden Alston MD :1970???Age:53 Y???Sex:Female D ate:07/06/2024 Address:[address] [place] [address], [id number] Pcp:Roc Mercado MD Subjective: * Chief Complaints: * ???1. Colon screening. * Medical History:? Objective: * Vitals:? Assessment: Plan: * Treatment: * * The named appointment provid er may or may not be the originator of this progress note, and it is not deemed complete until electronically signed by the appointment provider. Sign off status: Pending * Provider:?Jorden Alston MD Date:? 024 Generated for Robert manning/Franko/Modeitting on:?01/10/2025 10:15 AM EDT
[2025-02-02 13:51] VITALS: BMI 47.5
--- NOTE | 2025-02-03 09:24 | HO.ANESPROP2 ---
HPI - Anesthesia Eval Consult details Narrative: 54yo F for Colonoscopy PMF Active Problems Active Problems: All Active Problems UTI (urinary tract infection) (Acute) Hyperlipidemia (Acute) Hypertension (Acute) History of laparoscopic cholecystectomy (Acute 03/17/23) Past Medical History Medical History (Updated 02/02/25 @ 13:50 by Juanita Higginbotham RN) Migraines Hypothyroid Hyperlipidemia HTN (hypertension) Family History Family History Father Hypertension Hyperlipidemia Carotid disease, bilateral Mother Hypertension Thyroid disease History of heart attack Family history of problems with anesthesia: No Surgical History Surgical History History of laparoscopic cholecystectomy (03/17/23) History of eye surgery History of adenoidectomy History of hysterectomy History of Problems with Anesthesia: No Social History Social History Alcohol intake: never Patient Tobacco Use Status: Never used Tobacco service: No Meds Allergies Allergy/AdvReac Type Severity Reaction Status Date / Time lisinopril AdvReac Intermediate cough Verified 02/02/25 13:51 Home Medications ?Medication ?Instructions ?Recorded ?Confirmed ?Last Taken ?Type amlodipine 5 mg tablet 5 mg PO DAILY 11/21/20 02/02/25 03/17/23 History atorvastatin 20 mg tablet 20 mg PO BEDTIME 11/21/20 02/02/25 03/17/23 History cholecalciferol (vitamin D3) 25 50 mcg PO DAILY 11/21/20 02/02/25 03/17/23 History mcg (1,000 unit) capsule hydrochlorothiazide 12.5 mg capsule 12.5 mg PO DAILY 11/21/20 02/02/25 03/17/23 History metoprolol succinate 100 mg 100 mg PO DAILY 11/21/20 02/02/25 03/17/23 History tablet,extended release 24 hr valsartan 160 mg tablet 160 mg PO DAILY 11/21/20 02/02/25 03/17/23 History levothyroxine 125 mcg capsule 125 mcg PO DAILY@0600 12/26/21 02/02/25 03/17/23 History Exam Height,Weight and Vital Signs: Height 5 ft 3 in Weight 121.563 kg Assessment and Plan Assessment Anesthesia Assessment: Chart Reviewed Final Anesthetic Review Family History of Problems with Anesthesia: No History of Problems with Anesthesia: No
[2025-02-06 09:15] VITALS: BMI 45.0
[2025-02-06 09:28] VITALS: BP 152/61; PULSE 86; RESP 15; TEMP 36.8; O2SAT 97
[2025-02-06] MEDS: Lactated Ringers 1,000 ML 100 ML IVCONT (09:43)
[2025-02-06 11:24] VITALS: BP 109/50; PULSE 73; RESP 18; TEMP 37
--- NOTE | 2025-02-06 11:25 | PM.OP ---
Brief Operative Note Date of Service: 02/06/25 Pre-op diagnosis: Screening Post-op diagnosis: other (Diverticulosis) Procedure: Colonoscopy to the cecum Surgeon: Jorden Alston MD Anesthesia: MAC Was an Bulb Farmworker used for this Procedure?: No Estimated blood loss (mL): 0 Pathology: none sent Condition: stable Disposition: PACU
[2025-02-06 11:28] VITALS: BP 118/58; PULSE 73; RESP 18; O2SAT 97
[2025-02-06 11:48] VITALS: BP 137/62; PULSE 62; RESP 18; TEMP 36.2; O2SAT 99
--- NOTE | 2025-02-06 12:20 | OP_ITS ---
DATE OF SERVICE: 02/06/2025 SURGEON: Jorden Alston MD INDICATIONS: The patient presents for evaluation of colorectal cancer screening. Full consent has been obtained from her for this, including risks of bleeding and perforation. PREOPERATIVE DIAGNOSIS: Colorectal cancer screening. POSTOPERATIVE DIAGNOSIS: PROCEDURE PERFORMED: Colonoscopy to cecum. ESTIMATED BLOOD LOSS: COMPLICATIONS: ANESTHESIA: Monitored anesthesia care. ASSISTANTS: SPECIMENS: POSTOPERATIVE DIAGNOSES: Colorectal cancer screening, sigmoid diverticulosis, and internal hemorrhoids. DESCRIPTION OF PROCEDURE: The patient was placed in the left lateral decubitus position. The digital rectal exam revealed no abnormalities. The Olympus video pediatric colonoscope was then entered into the rectum and advanced to the cecum with the assistance of abdominal wall pressure. Once in the cecum, I did identify normal-appearing cecal pouch with appendiceal orifice and a normal-appearing ileocecal valve. The entire cecum and ileocecal valve appeared normal. The scope was slowly withdrawn assessing all mucosal surfaces carefully. Preparation was excellent. I did not visualize any sign of polyps, colitis, nor angiodysplasia. There was a mild amount of sigmoid diverticulosis. In the rectum, scope was retroflexed, visualizing internal hemorrhoids, but no other pathology. The rectal mucosa appeared normal. Scope was straightened and withdrawn from the patient. She tolerated the procedure well and was returned to the recovery area in stable condition. IMPRESSION: 1. Diverticulosis. 2. Internal hemorrhoids. PLAN: Given today's negative exam and no family history of colon cancer, I would recommend a followup colonoscopy in 10 years for further screening. She will, otherwise, see me on a p.r.n. basis. Jorden Alston MD RMW/MODL / [phone]
== END 2025-02-06 12:14 | disposition home or self-care (01) ==
PROVIDERS: PCP Internal Medicine; Visit Provider Internal Medicine
PROC: 0DJD8ZZ Inspection of Lower Intestinal Tract, Via Natural or Artificial Opening Endoscopic (ICD-10-PCS; CPT 45378; principal; 2025-02-06 10:30)
DX: Z12.11 Encounter for screening for malignant neoplasm of colon (principal); K57.30 Diverticulosis of large intestine without perforation or abscess without bleeding; K64.8 Other hemorrhoids; I10 Essential (primary) hypertension; E78.00 Pure hypercholesterolemia, unspecified; E03.9 Hypothyroidism, unspecified; G43.909 Migraine, unspecified, not intractable, without status migrainosus; Z79.899 Other long term (current) drug therapy; Z90.49 Acquired absence of other specified parts of digestive tract; Z98.890 Other specified postprocedural states; Z88.8 Allergy status to other drugs, medicaments and biological substances
CPT/HCPCS: 45378; J2003; J2704

== ENCOUNTER 2025-02-22 09:28 | Outpatient (AMB) | payer BC, SELFPAY ==
--- NOTE | 2025-02-22 09:36 | MHC.OFFVIS ---
Vital Signs 02/22/25 09:38 Height 5 ft 3 in Weight 252 lb 3.341 oz BMI 44.7 BP 132/64 Blood Pressure Location Lt brachial Position Sitting Pulse 80 Pulse Source Monitor Intake Visit Reasons: r/s 12/07/24 1 yr followup w/ekg Intake Note: 1 yr f/up/ekg Pressure Welder Required: No Accompanied by: Self / Same As Patient Allergies lisinopril Adverse Reaction (Intermediate, Verified 02/06/25 09:28) cough Medication List - Last Reconciled 02/22/25 by Heriberto Rhoades MD atorvastatin 20 mg PO BEDTIME cholecalciferol (vitamin D3) 50 mcg PO DAILY hydrochlorothiazide 12.5 mg PO DAILY levothyroxine 125 mcg PO DAILY@0600 metoprolol succinate ER 100 mg PO DAILY tirzepatide (weight loss) (Zepbound) mg subcut topiramate 50 mg PO DAILY valsartan 160 mg PO DAILY HPI Comments Details: 54-year-old female here for follow-up. She has background history of hypertension and hyperlipidemia. On follow-up she is doing well. Denying any chest discomfort shortness of breath. Blood pressure is well controlled. Overall no complaints to report. [facility] Medical History Hypothyroid Hyperlipidemia HTN (hypertension) Surgical History History of laparoscopic cholecystectomy (03/17/23) History of eye surgery History of adenoidectomy History of hysterectomy Family History Father Hypertension Hyperlipidemia Carotid disease, bilateral Mother Hypertension Thyroid disease History of heart attack Social History Alcohol intake: never Patient Tobacco Use Status: Never used Tobacco service: No Review of Systems Const Denies chills, Denies fatigue, Denies fever(s), Denies frequent falls, Denies weakness, Denies weight gain and Denies weight loss ENT Denies dizziness Card Denies chest pain, Denies leg edema, Denies lightheadedness, Denies palpitations, Denies dyspnea and Denies dyspnea on exertion Resp Denies cough, Denies dyspnea and Denies dyspnea on exertion GI Denies hematochezia Musc Denies abnormal gait, Denies muscle weakness, Denies numbness, Denies radiating pain into limb and Denies tingling Neuro Denies abnormal gait, Denies dizziness, Denies frequent falls, Denies numbness, Denies tingling and Denies weakness Endo Denies fatigue and Denies palpitations Physical Exam Vital Signs: Last Vital Signs Pulse 80 02/22/25 09:38 BP 132/64 02/22/25 09:38 BMI result Body Mass Index 44.7 GENERAL APPEARANCE: in no acute distress, pleasant. NECK: no carotid bruit, no jugular venous distention. SKIN: no suspicious lesions, warm and dry. HEART: no murmurs, regular rate and rhythm. LUNGS: clear to auscultation bilaterally. ABDOMEN: soft, nontender. EXTREMITIES: no edema. PERIPHERAL PULSES: equal. NEUROLOGIC: No gross deficits, AAO X 3 Office Procedures EKG Details: Sinus rhythm 80 beats per minute, normal axis, poor R-wave progression and can not rule out anterior infarct, QTC 433 milliseconds. [id number], Complete Assessment & Plan Assessment & Plan (1) Hypertension: Code(s): I10 - Essential (primary) hypertension Category: Medical Qualifiers: Hypertension type: essential hypertension Qualified Code(s): I10 - Essential (primary) hypertension (2) Hyperlipidemia: Code(s): E78.5 - Hyperlipidemia, unspecified Category: Medical Qualifiers: Hyperlipidemia type: unspecified Qualified Code(s): E78.5 - Hyperlipidemia, unspecified Plan Pleasant 54 year female who is here for follow-up. She has background history of hypertension and hyperlipidemia. She is currently on atorvastatin. Blood pressure is well controlled on hydrochlorothiazide , metoprolol and valsartan. Continue same medications for now. She should have fasting lipid panel once a year. She has poor R-wave progression on the EKG-we will arrange echocardiography to rule out any wall motion abnormality. She will follow up with us in 1 year. Thank you for allowing me to participate in the care of your patient. Please feel free to contact me if you have any questions. Orders: Orders CA echo transthoracic complete Today I10 - Essential (primary) hypertension Coding Level of Care Code Est Pt Level 4 (60495) Diagnoses Essential hypertension I10 Hypertension type: essential hypertension Hyperlipidemia, unspecified hyperlipidemia type E78.5 Hyperlipidemia type: unspecified CPT Codes EKG - CPT: 67924-Spwwjelrlkduaulnp, Complete ([id number])
[2025-02-22 09:38] VITALS: BP 132/64; PULSE 80; BMI 44.7
--- OUTSIDE RECORDS SUMMARY | 2025-02-22 10:09 | XMS_ITS ---
Author Organization [facility] Address [address] [place] [address] Care Team Providers Care Fish Packer Name Role Phone Roc Mercado MD Primary Care Provider Unavaila Jorden Issa Unavailable [phone] Allergies Allergen (clinical drug ingredient) Drug/Non Drug [...] Status Risk Notes Problem Colon cancer screening (285896370) Colon cancer screening (Z12.11) Active confirmed Problem Pre-procedure evaluation check (030856856) Encounter for other preprocedural examination (Z01.818) Active confirmed Vital Signs Blood pressure systolic 00 mm Hg 10/27/19 25 Blood pressure diastolic 00 mm Hg 025 Height 5 ft 3 in in 10/27/2024 Weight 268 lbs 10/27/2024 BMI 47.47 kg/m2 10/27/2024 Encounters Encounter Location Date Provider Diagnosis [facility] [address] [place] [address] 10/27/2024 Jorden Alston Colon cancer screeni ng [...] Notes Colon cancer screening Do not take [place] chlorothiazide the day before nor on the day of the colonoscopy Future Test Test Name Order Date COLONOSCOPY 10/27/2024 Next Appt Details Follow Up: prn, Reason: Progress Notes * CARINE KENNETH ADOB:1970 (53 yo F)Acc No.[id number]:10/27/2024 Progress Notes Patient:?KENNETH HAWK Provider:?Jorden Alston MD :1970???Age:53 Y???Sex:Female D ate:10/27/2024 Address:[address] [place] [address] [place], [id number] Pcp:Roc Mercado MD Subjective: * Chief Complaints: [...] in the past year??No,?Points?0,?Interpretation?Negative.?Miscellaneous:?Marital status: . 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 ???Nonsmoker; no sig alcohol. * Medications:?TakingVitamin D 50 MCG (1999 [place]) Capsule 1 capsule Orally Once a dayTopiramate [...] with the patientTaking Vitamin D 50 MCG (1999 [place]) Capsule 1 capsule Orally Once a dayTaking [...] Procedure Codes:?3017F COLOR ECTAL CA SCREEN DOC [id number] TOBACCO [id number] BP SCR NOT PRFRM REC REASON NOS * Preventive Medicine:? ??Counseling:?Care goal follow-up plan:?Above Normal BMI Follow-up?Giving encouragement to exercise,?BMI management provided?Yes.? * Follow Up:?prn * * Sign off status: Completed true * Provider:?Jorden Alston MD Date:? 025 Generated for Robert manning/Franko/eTtaniyasmitting on:?02/22/2025 10:09 AM EDT History and Physical Notes * [...]
== END 2025-02-22 09:52 | disposition home or self-care (01) ==
PROVIDERS: PCP Internal Medicine; Visit Provider Internal Medicine Cardiovascular Disease
DX: I10 Essential (primary) hypertension (principal); E78.5 Hyperlipidemia, unspecified
CPT/HCPCS: 93010; 99214

== ENCOUNTER → 2025-02-22 09:28 | Outpatient (BNVA) | payer SELFPAY | PROVIDERS: PCP Internal Medicine; Visit Provider Internal Medicine Cardiovascular Disease | DX: I10 Essential (primary) hypertension (principal); E78.5 Hyperlipidemia, unspecified; E03.9 Hypothyroidism, unspecified | CPT/HCPCS: 93005 ==

== ENCOUNTER → 2025-03-17 13:36 | Outpatient (REF) | payer BC, SELFPAY ==
--- OUTSIDE RECORDS SUMMARY | 2024-10-27 06:20 | XMS_ITS ---
Author Organization [facility] Address [address] [place] [address] Care Team Providers Care Ladle Watcher Name Role Phone Roc Mercado MD Primary Care Provider Unavaila Jorden Issa Unavailable [phone] Allergies Allergen (clinical drug ingredient) Drug/Non Drug Allergy documented on EMR Reaction Allergy Type Onset Date Status lisinopril Lisinopril cough Drug Allergy Activ e REASON FOR VISIT Patient presents today for a discuss colonoscopy Medications Medication SIG (Take, Route, Frequency, Duration) Notes Start Date End Date Status hydroCHLOROthiazide 12.5 MG Oral for 60 I10, Unavailab le Active Levothyroxine Sodium 125 MCG Oral for 30 E039,Unavaila ble Active Valsartan 160 MG Oral for 60 I10,Unavailab le Active amLODIPine Besylate 5 MG Oral for 60 I10,[place] vailab le Active Metoprolol Succinate ER 100 MG Oral for 60 Active Vitamin D 50 MCG (1999 [place]) 1 capsule Ora lly Once a day for 30 day(s) Active Atorvastatin Calcium 20 MG Oral for 30 Active Topiramate 50 MG Oral for 60 A ctive Social History Tobacco Use: Social History Observation Description Date Details (start date - stop date) Never Smoker NA - NA Tobacco Use/Smoking Question Answer Notes Patient is a nonsmoker Alcohol Screen Question Answer Notes Did you have a drink containing alcohol in the p ast year? No Points 0 Interpretation Negative Section Notes: Nonsmoker; no sig alcohol Problems Problem Type SNOMED Code ICD Code Onset Dates Problem Status W/U Status Risk Notes Problem Colon cancer screening (015310364) Colon cancer screening (Z12.11) Active confirmed Problem Encounter for other preprocedural examination (Z01.818) Active confirmed Vital Signs Blood pressure systolic 00 mm Hg 10/27/19 25 Blood pressure diastolic 00 mm Hg 025 Height 5 ft 3 in in 10/27/2024 Weight 268 lbs 10/27/2024 BMI 47.47 kg/m2 10/27/2024 Encounters Encounter Location Date Provider Diagnosis [facility] [address] [place] [address] 10/27/2024 Jorden Alston Colon cancer screeni ng Z12.11 and Encounter for other preprocedural examination Z01.818 Assessments Encounter Date Diagnosis (ICD Code) Assessment Notes Treatment Notes Treatment Clinical Notes Section Notes 10/27/2024 Colon cancer screening (ICD-10 - Z12.11) Do not take Hydrochlorothiazide the day before nor on the day of the colonoscopy Overall, Kenneth appears well. Given her age and never having had a colonoscopy, I did recommend a colonoscopy for screening purposes. We did review the rationale for that regard to colon cancer prevention. Full consent was obtained for this, including risks of bleeding and perforation. The procedure will be done with monitored anesthesia care. She was given the below instructions regarding adjustment of her medication for the procedure. Kenneth was comfortable with this plan. Thank you again for allowing me to participate in Kenneth's care. I shall continue to keep you advised of her progress. 10/27/2024 Encounter for other preprocedural examination (ICD-10 - Z01.818) Overall, Kenneth appears well. Given her age and never having had a colonoscopy, I did recommend a colonoscopy for screening purposes. We did review the rationale for that regard to colon cancer prevention. Full consent was obtained for this, including risks of bleeding and perforation. The procedure will be done with monitored anesthesia care. She was given the below instructions regarding adjustment of her medication for the procedure. Kenneth was comfortable with this plan. Thank you again for allowing me to participate in Kenneth's care. I shall continue to keep you advised of her progress. Plan Of Treatment Treatment Notes Assessment Notes Colon cancer screening Do not take [place] chlorothiazide the day before nor on the day of the colonoscopy Future Test Test Name Order Date COLONOSCOPY 10/27/2024 Next Appt Details Follow Up: prn, Reason: Progress Notes * KENNETH HAWK ADOB:1970 (53 yo F)Acc No.[id number]:10/27/2024 Progress Notes Patient: KENNETH ERWIN A Provider: Echo Alston MD :1970 A ge:53 Y S ex:Female Date:10/27/2024 Address:[address] [place], [place] [address] [phone] Pcp:Roc Mercado MD Subjective: * Chief Complaints: * P hanna presents today for a discuss colonoscopy * HPI: i ncontinence: I saw Kenneth in the office today for evaluation of colorectal cancer screening. A s you know, Kenneth is a 53-year-old female who presently feels well. She enjoys a good appetite, without any significant heartburn or dysphagia. Her bowel movements have been regular and without any signs of bleeding. She denies any abdominal pain, jaundice, nor unintentional weight loss. She denies any known family history of colon cancer. She has never had a colonoscopy. * ROS: G eneral/Constitutional: Change in appetite d enies. C hills d enies. F atigue d enies. O phthalmologic: Comments a ll negative. E NT: Comments a ll negative. R espiratory: hemoptysis d enies. C ough d enies. ? C ardiovascular: Chest pain d enies. O rthopnea d enies. ? G astrointestinal: Comments S [facility] for details. G enitourinary: Hematuria d enies. D ysuria d enies. ? M usculoskeletal: Painful joints d enies. W eakness d enies. ? S kin: Itching d enies. R karina d enies. N eurologic: Headache d enies. S eizures d enies. ? P sychiatric: Comments a ll negative. * Medical History: * Surgical History: E ar tubes Hysterectomy Cholecystectomy * Hospitalization/Major Diagno stic Procedure: N o Hospitalization History. * Family History: F ather: alive 80 yrs. M other: alive. No known hx of colon cancer. * Social History: T obacco Use: T obacco Use/Smoking Tez hanna is a n onsmoker. D rugs/Alcohol: A lcohol Screen D id you have a drink containing alcohol in the past year? N o, P oints 0 , I nterpretation N egative. M iscellaneous: M arital status: . 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 N onsmoker; no sig alcohol. * Medications: T akingVitamin D 50 MCG (1999) Capsule 1 capsule Orally Once a dayTopiramate 50 MG Tablet Oral Atorvastatin Calcium 20 MG Tablet Oral Levothyroxine Sodium 125 MCG Tablet Oral , Notes: E039,UnavailablehydroCHLOROthiazide 12.5 MG Capsule Oral , Notes: I10,UnavailableMetoprolol Succinate ER 100 MG Tablet Extended Release 24 Hour Oral amLODIPine Besylate 5 MG Tablet Oral , Notes: I10,UnavailableValsartan 160 MG Tablet Oral , Notes: I10,UnavailableMedication List reviewed and reconciled with the patientTaking Vitamin D 50 MCG (1999) Capsule 1 capsule Orally Once a dayTaking Topiramate 50 MG Tablet Oral Taking Atorvastatin Calcium 20 MG Tablet Oral Taking Levothyroxine Sodium 125 MCG Tablet Oral , Notes: E039,UnavailableTaking hydroCHLOROthiazide 12.5 MG Capsule Oral , Notes: I10,UnavailableTaking Metoprolol Succinate ER 100 MG Tablet Extended Release 24 Hour Oral Taking amLODIPine Besylate 5 MG Tablet Oral , Notes: I10,UnavailableTaking Valsartan 160 MG Tablet Oral , Notes: I10,UnavailableMedication List reviewed and reconciled with the patient * Allergies: L isinopril: coughyes[Allergies Verified] Objective: * Vitals: W t: 268 lbs, Ht: 5 ft 3 in, BMI:47.47 Index, BP: 00/00 mm Hg. * Examination: G eneral Examination: GENERAL APPEARANCE: p leasant, well nourished, well developed, in no acute distress. EYES: s clera non-icteric. ORAL CAVITY: m ucosa moist. NECK/THYROID: n o cervical lymphadenopathy, neck supple.? SKIN: n onjaundiced, no spider angiomata. HEART: S 1, S2 normal. LUNGS: c lear to auscultation bilaterally. ABDOMEN: n ormal bowel sounds, no guarding or rigidity, no guarding or rigidity, no masses palpable, soft, nontender, nondistended. EXTREMITIES: n o edema. NEUROLOGIC: a lert and oriented. Assessment: * Assessment: 1. E ncounter for other preprocedural examination - Z01.818 (Primary) 2 . C olon cancer screening - Z12.11 Overall, Kenneth appears well. Given her age and never having had a colonoscopy, I did recommend a colonoscopy for screening purposes. We did review the rationale for that regard to colon cancer prevention. Full consent was obtained for this, including risks of bleeding and perforation. The procedure will be done with monitored anesthesia care. She was given the below instructions regarding adjustment of her medication for the procedure. Kenneth was comfortable with this plan. Thank you again for allowing me to participate in Kenneth's care. I shall continue to keep you advised of her progress. Plan: * Treatment: Notes: Do not take Hydrochlorothiazide the day before nor on the day of the colonoscopy?? * Procedure Codes: 3 017F COLORECTAL CA SCREEN DOC [id number] TOBACCO [id number] BP SCR NOT PRFRM REC REASON NOS * Preventive Medicine: Counseling: C are goal follow-up plan: A azul Normal BMI Follow-up G iving encouragement to exercise, B FL management provided Y es. * Follow Up: p rn * * Sign off status: Completed true * Provider: Echo Alston MD Date: 0 10/27/2024 Generated for Robert manning/Franko/Modeitting on: 03/17/2025 01:39 PM EDT History and Physical Notes * HPI (History of Present Illness) Category Sub-Category Detail Notes Category Not es incontinence I saw Kenneth in the office today for evaluation of colorectal cancer screening. As you know, Kenneth is a 53-year-old female who presently feels well. She enjoys a good appetite, without any significant heartburn or dysphagia. Her bowel movements have been regular and without any signs of bleeding. She denies any abdominal pain, jaundice, nor unintentional weight loss. She denies any known family history of colon cancer. She has never had a colonoscopy. Examination Category Sub-Category Detail Notes Category Not es General Examination GENERAL APPEARANCE: pleasant , well nourished, well developed, in no acute distress HEAD: EYES: sclera non-icteric EARS: NOSE: THROAT: NECK/THYROID: no cervical lymphade nopathy, neck supple HEART: S1, S2 normal CHEST: LUNGS: clear to auscultatio n bilaterally ABDOMEN: normal bowel sounds, no guarding or rigidity, no guarding or rigidity, no masses palpable, soft, nontender, nondistended NEUROLOGIC: alert and oriented SKIN: nonjaundiced, no spi esau angiomata EXTREMITIES: no edema PERIPHERAL PULSES: BACK: BREASTS: MUSCULOSKELETAL: MALE GENITOURINARY: LYMPH NODES: RECTAL EXAM: FEMALE GENITOURINARY: ORAL CAVITY: mucosa moist
--- NOTE | 2025-03-17 13:38 | CA_ITS ---
Transthoracic Echocardiogram Patient (Last, First, Middle): Zena Ashraf A Gender: Female Date of : 1970 Age: 54 Procedure Date: 03/17/2025 Procedure Type: Transthoracic Echocardiogram Location: OP Height: 160.02 cm Weight: 114.31 kg BSA: 2.13 m2 Heart Rate: 84 bpm BP: 132 / 62 mmHg Networking Administrator: SOL Referring MD: Heriberto Rhoades MD Outsole Caser: Heriberto Rhoades MD Symptoms: I10 - Essential (primary) hypertension Study Quality: Adequate w contrast ECG Rhythm: Sinus Conclusions: - Normal left ventricular cavity size. There is mildly increased left ventricular wall thickness. The left ventricular systolic function is hyperdynamic. The visually estimated ejection fraction is >70%. - Normal right ventricular cavity size and systolic function. Findings Procedure Information Contrast agent, definity, is being given per protocol without apparent complications. The quality of the study was technically difficult. Left Ventricle Normal left ventricular cavity size. There is mildly increased left ventricular wall thickness. The left ventricular systolic function is hyperdynamic. The visually estimated ejection fraction is >70%. There is no evidence of regional wall motion abnormalities. Diastolic function is normal for age. Right Ventricle Normal right ventricular cavity size and systolic function. Atria The left atrium is normal in size. The right atrium is normal in size. Aortic Valve Normal aortic valve structure and function. There is no aortic valve stenosis. There is no aortic valve regurgitation. Mitral Valve The mitral valve appears normal. There is no mitral valve regurgitation. There is no mitral valve stenosis. Pulmonic Valve The pulmonic valve is likely normal. Tricuspid Valve Normal tricuspid valve structure. There is trace tricuspid valve regurgitation. The right ventricular systolic pressure is 29 mmHg. Low right atrial pressure. There is no evidence of pulmonary hypertension. Great Vessels All visible segments of the aorta are normal in size. The visualized portions of the pulmonary artery and branches are normal. Venous The inferior vena cava is collapsed, consistent with reduced intravascular volume. Pericardium/Pleural There is no evidence of pericardial effusion. Prior Study Comparison No significant change compared to prior study dated: 09/19/2019. Measurements 2D Linear Measurements IVSd: 1.32 0.6-0.9/0.6-1.0 cm LVIDd: 3.98 3.9-5.3/4.2-5.9 cm LVIDd Index: 1.87 2.4-3.2/2.2-3.1 cm/m2 LVIDs: 2.63 2.0-3.6 cm LVPWd: 1.09 0.7-1.1 cm LA Diam: 4.00 2.7-3.8/3.0-4.0 cm LAIDs Index: 1.88 1.5-2.3 cm/m2 LV Mass: 205.79 67-162/88-224 g LV Mass Index: 96.61 43-95/49-115 g/m2 LVOT Diam: 2.10 3.0+(-)1.3 cm 2D Systolic Function EF 4C: 66.90 >55% EF 2C: 71.40 >55% EF BiP: 69.60 >55% Mitral Valve MV Pk E: 0.72 MV PK A: 0.84 MV Decel Time: 157.00 E/A: 0.90 E'Lateral: 12.40 E'Medial: 6.85 E/E' Med: 10.50 E/E' Lat: 5.80 PHT: 46.00 MVA PHT: 4.78 Decel [place]: 4.56 Aortic Valve AoV Pk Joselo: 1.47 AoV Pk Grad: 9.00 CAREY: 2.79 LVOT LVOT Pk Joselo: 1.17 LVOT Mn Joselo: 0.95 LVOT VTI: 0.26 LVOT Pk Grad: 5.00 LVOT Mn Grad: 4.00 LVOT Diam: 2.10 LVOT Area: 3.46 Diastolic Function MV Pk E: 0.72 MV Pk A: 0.84 E/A: 0.90 E'Medial: 6.85 E/E' Med: 10.50 E' Laterial: 12.40 E/E' Lat: 5.80 Right Ventricle TAPSE (mm): 18.50 TVS' Joselo: 8.70 Tricuspid Valve TR Pk Joselo: 2.54 TR Pk Grad: 26.00 RA Press: 3.00 RVSP: 29.00 Great Vessels Aorta Sinus of Valsalva: 2.60 2.0-3.5 cm Ao Asc: 2.90 2.1-3.4 cm Pulmonary Valve PV Pk Joselo: 1.03 Peak PV Grad: 4.00 Updated in Other Vendor System with Status of Final Heriberto Rhoades MD electronically signed on 03/17/2025 9:42:37 PM with status of Final
== END ==
LOC: HO.CARD 13:36
PROVIDERS: PCP Internal Medicine; Visit Provider Internal Medicine Cardiovascular Disease
DX: I10 Essential (primary) hypertension (principal)
CPT/HCPCS: 93306; Q9957

== ENCOUNTER → 2025-03-17 13:38 | Outpatient (BNV) | payer BC, SELFPAY | PROVIDERS: PCP Internal Medicine; Visit Provider Internal Medicine Cardiovascular Disease | DX: I51.89 Other ill-defined heart diseases (principal) | CPT/HCPCS: 93306 ==